=== PATIENT | female | born 1980 | race Caucasian/White ===

== ENCOUNTER 2016-11-26 11:28 | Day surgery (SDC) | payer OTHER ==
[~2016-11-26] VITALS: Ht 170.2 cm; Wt 83.0 kg
[2016-11-26 12:11] VITALS: BP 125/93
[2016-11-26] MEDS ORDERED: LACTATED RINGERS 1,000 ML IV SCH (12:12)
[2016-11-26] MEDS ORDERED: LIDOCAINE 1%, 2ML ONE (12:14)
[2016-11-26] MEDS ORDERED: LIDOCAINE 1%, 2ML SQ PRN (12:30)
[2016-11-26] MEDS ORDERED: CHLORHEXIDINE MOUTHWASH 15 ML UDC ONE ×2 (12:46)
[2016-11-26] MEDS ORDERED: MIDAZOLAM 1 MG/ML, 2ML ONE (12:57)
[2016-11-26] MEDS ORDERED: FENTANYL PF 100 MCG/2ML ONE (13:18)
[2016-11-26 13:28] LABS: HCG UR OBC PASS
[2016-11-26] MEDS ORDERED: ONDANSETRON 2MG/ML, 2ML IVPush PRN (13:30)
[2016-11-26] MEDS ORDERED: MIDAZOLAM 1 MG/ML, 2ML IV PRN (13:30)
[2016-11-26] MEDS ORDERED: PROMETHAZINE 25 MG/ML, 1ML IV PRN (13:30)
[2016-11-26] MEDS ORDERED: HYDROmorphone 1 MG/ML, 1ML IV PRN (13:30)
[2016-11-26] MEDS ORDERED: LABETALOL 5MG/ML, 20ML IV PRN (13:30)
[2016-11-26] MEDS ORDERED: ACETAMINOPHEN 325 MG TABLET PO PRN (13:30)
[2016-11-26] MEDS ORDERED: MEPERIDINE/PF 25MG/0.5ML IVPush PRN (13:30)
[2016-11-26] MEDS ORDERED: OXYcodone 5 MG/5 ML ORAL.SOL UDC PO PRN (13:30)
[2016-11-26] MEDS ORDERED: FENTANYL PF 100 MCG/2ML IV PRN (13:30)
[2016-11-26] MEDS ORDERED: hydrALAzine 20 MG/ML, 1ML IV PRN (13:30)
[2016-11-26] MEDS ORDERED: METOCLOPRAMIDE 5 MG/ML, 2ML IV PRN (13:30)
[2016-11-26] MEDS ORDERED: ACETAMINOPHEN 650 MG/20.3 ML UDC ONE (14:06)
[2016-11-26] MEDS ORDERED: ONDANSETRON 2MG/ML, 2ML ONE (15:54)
[2016-11-26] MEDS ORDERED: SUCCINYLCHOLINE 20 MG/ML, 10ML ONE (15:54)
[2016-11-26] MEDS ORDERED: DEXAMETHASONE 4 MG/ML, 1ML ONE (15:54)
[2016-11-26] MEDS ORDERED: PROPOFOL 10 MG/ML, 20ML ONE (15:54)
[2016-11-26] MEDS ORDERED: ROCURONIUM 10 MG/ML ONE (15:54)
== END 2016-11-26 16:30 | disposition home or self-care (01) ==
LOC: OUT 11:28
PROVIDERS: ATTEND Internal Medicine Gastroenterology
DX: K85.10 Biliary acute pancreatitis without necrosis or infection (principal); G43.109 Migraine with aura, not intractable, without status migrainosus; Z83.79 Family history of other diseases of the digestive system
CPT/HCPCS: 43237; 43239; 81025; 88305; J0330; J1100; J2250; J2405; J2704; J3010